=== PATIENT | male | born 1990 | race Caucasian/White ===

== ENCOUNTER 2018-10-01 01:33 | Emergency (ER) | payer OTHER ==
[~2018-10-01] VITALS: Ht 188 cm; Wt 61.2 kg
[~2018-10-01 01:33] MED LIST: CLONAZEPAM 1 MG1 M1 PO; DULERA 100 MCG/13 GM INH; IBUPROFEN 800800 M1 PO; NORCO 5-325 TA1 EACH PO
[2018-10-01 01:35] VITALS: BP 131/68
--- NOTE | 2018-10-01 07:35 | EKG ---
[address] [place] [address] ELECTROCARDIOGRAM REPORT Name: CHAN PEÑA Room #: DEP SHAYNE Clark#: [id number] ������������������ Admission: 10/01/18 ������������������ Attend Phys: Discharge: 10/01/18 ������������������ Date of : 89 Report #: [id number] ����������������������������������������������������������������� [id number] THIS REPORT FOR: //name// [facility] ED Test Date: 2018-10-01 Test Time: 01:54:28 Pat Name: CHAN PEÑA Department: Room: Gender: Industrial Roofer: THELMA : 1990 Requested By: Medhat Pike Order Number: [id number] MD: Cody Machuca Measurements Intervals Gate Rate: 74 P: 55 LA: 150 QRS: 73 QRSD: 82 T: 77 QT: 356 QTc: 395 Interpretive Statements Sinus arrhythmia Poor septal R-wave progression Compared to ECG 04/30/2016 04:46:52 No significant change was found Electronically Signed On 10-01-2018 7:35:22 CDT by Cody Machuca [email or web address] ��������������������������������������������� <ELECTRONICALLY SIGNED> ���������������������������������������� By: Cody Machuca MD, [facility] ��������������������������������������������� 10/01/18 [id number] [id number] Cody Machuca MD, FACC /EPI
== END 2018-10-01 02:26 | disposition home or self-care (01) ==
LOC: ER 01:33
DX: F41.9 Anxiety disorder, unspecified (principal); R06.4 Hyperventilation; F32.9 Major depressive disorder, single episode, unspecified; Z88.0 Allergy status to penicillin